=== PATIENT | female | born 1985 | race Caucasian/White ===

== ENCOUNTER 2017-02-04 18:00 | Observation (INO) | payer OTHER | END 2017-02-04 20:05 | disposition home or self-care (01) | LOC: FLD 18:00 | PROVIDERS: ADMIT Obstetrics & Gynecology; ATTEND Obstetrics & Gynecology | DX: Z03.79 Encounter for other suspected maternal and fetal conditions ruled out (principal) | CPT/HCPCS: G0378 ==

== ENCOUNTER 2017-02-23 04:15 | Inpatient (IN) | payer OTHER ==
[2017-02-23] MEDS ORDERED: LR 1,000 ML IV PRN (04:41)
[2017-02-23] MEDS ORDERED: OLIVE OIL 118 ML BTL MISC PRN (04:41)
[2017-02-23] MEDS ORDERED: EPSOM SALT 454 GM TP PRN (04:41)
[2017-02-23] MEDS ORDERED: TERBUTALINE SULFATE 1 MG/ML VIAL IV PRN (04:41)
[2017-02-23] MEDS ORDERED: OXYTOCIN/RINGERS LACTATE 1,000 ML IV PRN (04:41)
[2017-02-23] MEDS ORDERED: LR 500 ML IV PRN (04:48)
[2017-02-23] MEDS ORDERED: OLIVE OIL 118 ML BTL ONE (04:51)
[2017-02-23] MEDS ORDERED: LIDOCAINE 1% 300 MG/30 ML SDV ONE (04:51)
[2017-02-23] MEDS ORDERED: AMMONIA AROMATIC 1 EACH AMP IH ONE (04:52)
[2017-02-23] MEDS ORDERED: OXYTOCIN 10 UNIT/ML VIAL ONE (04:52)
[2017-02-23] MEDS ORDERED: MISOPROSTOL 200 MCG TAB ONE (04:52)
[2017-02-23] MEDS ORDERED: OXYTOCIN/RINGERS LACTATE 500 ML IV SCH (05:00)
--- NOTE | 2017-02-23 05:17 | PDGENHP ---
History and Physical History and Physical: Labor and Delivery History and Physical Exam DATE OF ADMISSION: 02/23/2017 HISTORY OF PRESENT ILLNESS: Helga is a 32-year-old G1 WF @ 40.3 weeks gestation based on EDC of 02/20/17 (by LMP c/w 9 week scan) who presents for elective IOL. She was seen last evening in clinic where a Andrew bulb was inserted through cervix for ripening and induction of labor. Helga is overall quite healthy and she has had a relatively uncomplicated course. Placenta previa was diagnosed on 12 week scan but subsequently resolved. At 39 weeks, growth US was performed to follow size measuring greater than dates. US showed male infant in cephalic presentation measuring 83%ile. She reports that she thinks her Andrew bulb has come out and has presented earlier than expected this morning for admission. A+ / Antibody Screen Neg / RPR NR / Rubella Immune / HBsAg Neg / HIV Neg / CF, SMA, Fragile X, cfDNA testing, MSAFP, anatomy scan all Neg / Pap, GC WNL, 03-22- / Hr GTT 100 / GBS NEGATIVE. MEDICAL HISTORY: H/o anxiety (no current meds). CURRENT MEDICATIONS: OTC vitamins. SURGICAL HISTORY: None. ALLERGIES: Quinine (N/V). SOCIAL HISTORY: (, Min). Planned . Denies tobacco, ETOH or illicit drug use. FAMILY MEDICAL HISTORY: CVD (mom has early onset heart disease), chronic hypertension, melanoma (mom). OBSTETRICAL/GYNECOLOGIC HISTORY: REVIEW OF SYSTEMS: GENERAL: Denies generalized faintness or fatigue HENT: Denies headache, vision changes, sore throat PULM: Denies cough, shortness of breath CV: Denies palpitations, chest pain GI: Denies nausea, vomiting, diarrhea, constipation : Denies dysuria, vaginal bleeding, vaginal discharge, admits to movement and painful contractions, denies gush of fluid. She felt the Andrew "come down, but not sure if it completely came out." MSK: Denies significant swelling in extremities SKIN: Denies rash, or new lesion NEURO: Denies numbness, weakness, tingling PSYCH: Denies significant mood changes PHYSICAL EXAM: VITALS: VSS GENERAL APPEARANCE: Alert & oriented x 3 HENT: Normocephalic, atraumatic HEART: RRR, no M/R/G LUNGS: CTAB, no wheezes, no rhonchi ABDOMEN: Gravid, non-distended, non-tender, S=D PELVIC EXAM: Cervical exam: RN performed exam, Andrew still in cervix and did not come out with firm tug on tubing. EXTREMITIES: No excessive edema noted in bilateral lower extremities. Assessment: FHR 120, category 1 Tocometry: Contractions (30 seconds) every 2 minutes. ASSESSMENT: 32-year-old G1 female @ 40.3 presents for term elective induction of labor. PLAN: 1. Admit for IOL. 2. Consider Pitocin for augmentation.
[2017-02-23 05:53] LABS: % IMMATURE GRANULYOCYTES 0.3 % (0.0-1.1); ABSOLUTE IMMATURE GRANULOCYTES 0.04 10^3/uL (0.00-0.10); ADD DIFF? NO; ADD MORPH? NO; ADD SCAN? NO; ATYPICAL LYMPHOCYTE FLAG 0 (0-99); FRAGMENT RBC FLAG 0 (0-99); HEMATOCRIT 39.1 % (38.0-47.0); HEMOGLOBIN 13.6 g/dL (12.6-16.3); LEFT SHIFT FLG 0 (0-99); LIPEMIA HEMOLYSIS FLAG 90 (0-99); MEAN CELL HEMOGLOBIN 30.1 pg (27.9-34.1); MEAN CELL HEMOGLOBIN CONCENTR. 34.8 g/dL (32.4-36.7); MEAN CELL VOLUME 86.5 fL (81.5-99.8); MEAN PLATELET VOLUME 10.6 fL (8.7-11.7); PLATELET CLUMPS FLAG 10 (0-99); PLATELET COUNT 234 10^3/uL (150-400); RED BLOOD CELL COUNT 4.52 10^6/uL (4.18-5.33); RED CELL DISTRIBUTION WIDTH 12.7 % (11.5-15.2)
--- NOTE | 2017-02-23 10:26 | GHP ---
[f rep st] HISTORY AND PHYSICAL DATE OF ADMISSION: 02/23/2017 ADMITTING DIAGNOSIS: Intrauterine at 40-3/7 weeks' gestation for elective induction of lab or. HISTORY OF PRESENT ILLNESS: The patient is a 32-year-old, 1, para 0, with a last menstrual p eriod of 05/16/2016, and an EDC of 02/20/2017, confirmed by a first trimester ultrasound. She has sheehan d good care at [facility] since registration at 9 weeks' gestation and has had an uncomplicated course. On her initial viability ultrasound, she was diagnosed with a simple ovarian cyst that measured 5 x 6 x 5 cm that was observed over the course of her and resol ed by 20 weeks. She also had a marginal placenta previa initially on ultrasound, which resolved by 2 0 weeks as well. Other than that, she has had normal ultrasounds, normal labs in this , and has progressed to 40-3/7 weeks. The most recent ultrasound for estimated weight due to concer n for size greater than dates, estimated weight was 83rd percentile. Baby was symmetric. BPT was 83rd percentile, AC was 89th, LISA was normal at 15 and, at that point, the patient opted to proce ed with elective induction of labor after her EDC. PAST OBSTETRICAL HISTORY: The patient has no past obstetrical history. This is her first . PAST GYNECOLOGICAL HISTORY: She has normal menses with menarche at age 15, periods every 26-30 days, lasting 5 days. She regular last menstrual period, and she was trying to conceive. She has a remote history of an abnormal Pap at age 21. Negative colpo. Has had normal Pap since. She u sed oral contraceptive pills for the last 10 years. No other gynecological problems or STDs. PAST MEDICAL HISTORY: She has no significant past medical history. She did have a history of head i njuries by trauma at age 8 and in high school soccer. No residual side affects. PAST SURGICAL HISTORY: None. ALLERGIES: She is allergic to quinine. It gives her violent GI symptoms, nausea and vomiting. MEDICATIONS: Her only medications include vitamins and DHA. LABORATORY DATA: She is A positive, antibody negative, RPR nonreactive, rubella immune, hepatitis ne gative, HIV negative. Cystic fibrosis, SMA, fragile X negative. Pap normal. Gonorrhea and chlamydi a normal. Verifi normal. 1-hour GTT 100. GBS is negative. REVIEW OF SYSTEMS: Currently is significant for mild contractions, and she had bloody show and mucus discharge. Normal movement. No other significance in a 10-point review of systems. SOCIAL HISTORY: She is . She lives with her . 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 She denies tobacco, alcohol, and drug use. FAMILY HISTORY: Her mother had early-onset heart disease. Father has chronic hypertension. Paterna l grandmother had rheumatoid arthritis. Mom has melanoma as does her maternal grandfather. OBJECTIVE: Today she is afebrile. Vital signs are stable. heart tones 140s, reactive. Moder ate variability, category 1. She is patricia irregularly. Cervical exam: Her Andrew catheter was removed without difficulty. She is 3 cm, 80%, -3 station, and baby is cephalic. ASSESSMENT AND PLAN: A 32-year-old, 1, para 0 at 40-3/7 weeks' gestation for elective induct ion of labor. We will continue Pitocin per protocol, gradually increasing to achieve active labor. We will reassess her cervical dilation in a couple of hours and attempt artificial rupture of membran es. The patient will desire an epidural for pain control. status is reassuring. /[id number]/MODL
--- NOTE | 2017-02-23 13:06 | OBPROG ---
Labor Progress Note Assessment/Plan: Assessment: 32 y/o @ 40 3/7 weeks IOL secondary to suspected macrosomia. Plan: Cervical change from the castano and good contraction pattern now on pitocin. Baby remains in a high station now. She wants to get her epidural now and when she is comfortable, I will attempt AROM. 02/23/17 13:06 Subjective/Intrapartum Course: 02/23/17 13:02 Pt is feeling strong regular contractions. She is coping with them well. She has walked and worked hard this am to be active with her contractions. Objective: 02/23/17 05:26 Patient ABO/Rh A POSITIVE 02/23/17 05:26 - SVE Dilation (cm): 3 Effacement (%): 80 Station: -2 Membranes: Intact - Contraction Pattern Assessment Current Contraction Pattern: Regular (Q 2-3) - FHR Assessment Rice FHR (bpm): 140 FHR Pattern Variability: Moderate FHR Category: 1 - AP Antepartum Course: 02/23/17 13:05 Marginal placenta previa now resolved. Strong family hx macrosomia and they all needed c section deliveries. Oxytocin Orders Assessment - Pre-Induction/Augmentation Assessment Gestational Age: 40 week(s) and 3 day(s) ICD10 Worksheet Patient Problems: Problems Problem Status Onset Active labor at term Acute - ICD10 Problem Qualifiers (1) Active labor at term
[2017-02-23] MEDS ORDERED: fentaNYL 2MCG/ML/BUP 0.1% RTU 100 ML BAG EP ONE (13:24)
[2017-02-23] MEDS ORDERED: PHENYLEPHRINE HCL 100 MCG/ML SYR ONE ×2 (13:25→19:34)
[2017-02-23] MEDS ORDERED: BUPIVACAINE 0.25% 30 ML SDV ONE (13:25)
[2017-02-23] MEDS ORDERED: fentaNYL 100 MCG/2 ML INJ ONE ×2 (13:26→19:06)
--- NOTE | 2017-02-23 14:49 | OBPROG ---
Labor Progress Note Assessment/Plan: Assessment: 32 y/o @ 40 3/7 weeks IOL secondary to suspected macrosomia. Plan: Cervical change from the castano and good contraction pattern now on pitocin. Baby remains in a high station now. She wants to get her epidural now and when she is comfortable, I will attempt AROM. 02/23/17 13:06 02/23/17 14:48 Good cervical progression. Arom for blood tinged fluid and IUPC placed to optimize pitocin dosing. Continue IOL. status reassuring. Subjective/Intrapartum Course: 02/23/17 13:02 Pt is feeling strong regular contractions. She is coping with them well. She has walked and worked hard this am to be active with her contractions. 02/23/17 14:47 Pt is now comfortable with her epidural. Objective: 02/23/17 05:26 Patient ABO/Rh A POSITIVE 02/23/17 05:26 - SVE Dilation (cm): 5 Effacement (%): 80 Station: -2 Membranes: AROM, Intact Amniotic Fluid Color: Bloody (blood tinged, along with cervical bloody show) - Contraction Pattern Assessment Current Contraction Pattern: Regular (Q 2-3) - FHR Assessment Rice FHR (bpm): 120 FHR Pattern Variability: Moderate FHR Category: 1 (baby had an episode of category 2 transient with maternal hypotension and AROM, now reassuring) - Procedures Non-surgical Procedures: Amniotomy - AP Antepartum Course: 02/23/17 13:05 Marginal placenta previa now resolved. Strong family hx macrosomia and they all needed c section deliveries. Oxytocin Orders Assessment - Pre-Induction/Augmentation Assessment Gestational Age: 40 week(s) and 3 day(s) ICD10 Worksheet Patient Problems: Problems Problem Status Onset Active labor at term Acute - ICD10 Problem Qualifiers (1) Active labor at term
--- NOTE | 2017-02-23 15:15 | PREANESOB ---
Obstetric Pre-Anesthesia Info - General Info Proposed Procedure: Labor and delivery with pitocin. : 1 Para: 0 GERSON: 02/20/17 Gestational Age: 40 week(s) and 3 day(s) - Info Status: Postmature Monitors: External FHR Baseline (bpm): 140 FHR Pattern: Reassuring - Labor Status Cervical Dilation per last OB SVE: 4 Station per last OB SVE: -2 Amniotic Fluid Color: Bloody (blood tinged, along with cervical bloody show) Pitocin: In Use Indications for Labor Analgesia: Induction of Labor, Pain Control Labor Epidural: Proposed Anesthesia ROS: Negative. Allergies/Adverse Reactions: Allergy/AdvReac Type Severity Reaction Status Date / Time quinine Allergy Verified 02/23/17 06:56 Home Medications: Medication Instructions Recorded 1 tab PO DAILY 02/23/17 Visit Medications: Generic Name Dose Route Start Last Admin Trade Name Freq PRN Reason Stop Dose Admin Lactated Ringer's 1,000 mls @ 0 mls/hr 02/23/17 04:41 Lr IV 08/22/17 04:40 PRN PRN SEE PROTOCOL CONDITIONS Protocol Per Protocol Oxytocin/Lactated Ringer's 1,000 mls @ 150 mls/hr 02/23/17 04:41 Pitocin 20 Units/Lr (Premix) IV PRN PRN Post- bleeding Lactated Ringer's 500 mls @ 500 mls/hr 02/23/17 04:48 Lr IV PRN PRN Maternal Hypotension Oxytocin/Lactated Ringer's 500 mls @ 0 mls/hr 02/23/17 05:00 02/23/17 05:48 Pitocin 30 Units/Lr (Premix) IV 08/22/17 04:59 500 mls CONT THEA Administration Protocol Per Protocol Ibuprofen 600 mg 02/23/17 04:41 Motrin PO 08/22/17 04:40 Q6HRS PRN post , inflammation Magnesium Sulfate 454 gm 02/23/17 04:41 Epsom Salt TP 08/22/17 04:40 Q1H PRN perineal discomfort Cushing Oil 118 ml 02/23/17 04:41 Sweet Oil MISC 08/22/17 04:40 ONCE PRN perineal massage Terbutaline Sulfate 0.25 mg 02/23/17 04:41 Brethine IV 04/23/18 04:40 ONCE PRN Tachysystole Discontinued Medications Generic Name Dose Route Start Last Admin Trade Name Curly PRN Reason Stop Dose Admin Ammonia (Aromatic Spirit) Confirm 02/23/17 04:52 Ammonia Aromatic Administered 02/23/17 04:53 Dose 1 each IH .STK-MED ONE Bupivacaine HCl Confirm 02/23/17 13:25 Sensorcaine 0.25% Sdv Administered 02/23/17 13:26 Dose 30 ml .ROUTE .STK-MED ONE Fentanyl Confirm 02/23/17 13:26 Sublimaze Administered 02/23/17 13:27 Dose 100 mcg .ROUTE .STK-MED ONE Fentanyl/Bupivacaine HCl Confirm 02/23/17 13:24 Fentanyl/Bupivacaine/Ns 2 Mcg/Ml 0.1% (Premix Administered 02/23/17 13:25 Dose 100 ml EP .STK-MED ONE Lidocaine HCl Confirm 02/23/17 04:51 Lidocaine Hcl 1% Administered 02/23/17 04:52 Dose 300 mg .ROUTE .STK-MED ONE Misoprostol Confirm 02/23/17 04:52 Cytotec Administered 02/23/17 04:53 Dose 1,000 mcg .ROUTE .STK-MED ONE Cushing Oil Confirm 02/23/17 04:51 Sweet Oil Administered 02/23/17 04:52 Dose 118 ml .ROUTE .STK-MED ONE Oxytocin Confirm 02/23/17 04:52 Pitocin Administered 02/23/17 04:53 Dose 30 unit .ROUTE .STK-MED ONE Phenylephrine HCl Confirm 02/23/17 13:25 Neosynephrine Administered 02/23/17 13:26 Dose 1,000 mcg .ROUTE .STK-MED ONE - Anesthesia History Response to Local Anesthetics: Normal Anesthesia & Operative History: No Prior Problems Family Anesthesia History: Negative - Social History Substance Use/Abuse: Denies - Vital Signs Blood Pressure: 123/79 Heart Rate: 77 Respiratory Rate: 16 Height/Weight (Nursing): Height 170.18 cm Weight 99.79 kg - Focused Exam Neck exam: FROM Mallampati Score: Class 1 Mouth exam: normal dental/mouth exam Pulmonary: no respiratory distress Cardiovascular: regular rate and rhythym Labs: 02/23/17 05:26 Patient ABO/Rh A POSITIVE 02/23/17 05:26 - Plan Anesthetic Plan: YAHAIRA Consent Signed and on Chart: Yes Patient/Guardian Understands and Agrees to Plan: Yes Urgent/Emergent Case: Maribel auguste completed preop but documented later for safe timely pt care (ASA 2.)
--- NOTE | 2017-02-23 15:16 | POSTANESTH ---
Post Anesthetic Evaluation Cardiovascular Status: Normal, Stable (BP stable after phenylephrine.) Respiratory Status: Normal, Stable, Similar to Pre-op Cond. Level of Consciousness/Mental Status: Can Participate in Eval, Alert and Oriented Pain Control: Adequate, Prn Tx Ordered Nausea/Vomiting Control: Adequate, Prn Tx Ordered Complications Possibly Related to Anesthesia: None Noted
[2017-02-23] MEDS ORDERED: ONDANSETRON 4 MG/2 ML VIAL IVP PRN ×2 (15:17→20:52)
[2017-02-23] MEDS ORDERED: PHENYLEPHRINE HCL 100 MCG/ML SYR IVP PRN (15:17)
[2017-02-23] MEDS ORDERED: fentaNYL 2MCG/ML/BUP 0.1% RTU 100 ML EP SCH (15:30)
[2017-02-23] MEDS ORDERED: LR 500 ML IV SCH (15:30)
[2017-02-23] MEDS ORDERED: LIDO/EPI 2% **for epidural** 20 ML SDV ONE (19:06)
[2017-02-23] MEDS ORDERED: ceFAZolin 2 GM in D5W 100 ML IV ONE (19:15)
[2017-02-23] MEDS ORDERED: DEXAMETHASONE 4 MG/ML VIAL ONE (19:34)
[2017-02-23] MEDS ORDERED: OXYTOCIN 100 UNITS/10 ML VIAL ONE (19:34)
[2017-02-23] MEDS ORDERED: ONDANSETRON 4 MG/2 ML VIAL ONE (19:34)
[2017-02-23] MEDS ORDERED: morphINE PF 5 MG/10 ML INJ ONE (19:34)
[2017-02-23] MEDS ORDERED: PROMETHAZINE HCL 25 MG/ML INJ IVP PRN (20:34)
[2017-02-23] MEDS ORDERED: ACETAMINOPHEN 325 MG TAB PO PRN (20:34)
[2017-02-23] MEDS ORDERED: SIMETHICONE 80 MG TAB CHEW PO PRN (20:34)
[2017-02-23] MEDS ORDERED: LACTULOSE 20 GM/30 ML UDCUP PO PRN (20:36)
[2017-02-23] MEDS ORDERED: MAGNESIUM HYDROXIDE 30 ML UDCUP PO PRN (20:36)
[2017-02-23] MEDS ORDERED: BISACODYL 10 MG SUPP PR PRN (20:36)
[2017-02-23] MEDS ORDERED: POLYETHYLENE GLYCOL 3350 17 GM PKT PO PRN (20:36)
--- NOTE | 2017-02-23 20:41 | OBDEL ---
Info Type: Primary Presentation at Delivery: Vertex L&D Analgesia/Anesthesia Type: Epidural GBS+: No Intrapartum Medications: Generic Name Dose Route Start Last Admin Trade Name Freq PRN Reason Stop Dose Admin Oxytocin/Lactated Ringer's 500 mls @ 0 mls/hr 02/23/17 05:00 02/23/17 05:48 Pitocin 30 Units/Lr (Premix) IV 08/22/17 04:59 500 mls CONT THEA Administration Protocol Per Protocol Discontinued Medications Generic Name Dose Route Start Last Admin Trade Name Freq PRN Reason Stop Dose Admin Cefazolin Sodium 2 gm/ 100 mls @ 200 mls/hr 02/23/17 19:15 02/23/17 19:16 Dextrose IV 02/23/17 19:44 100 mls ONCE ONE Administration - Care Provider Skate Maker/PRODUCT SAFETY HEAD: Delia Carrero - Hospital Course Intrapartum: 02/23/17 13:02 Pt is feeling strong regular contractions. She is coping with them well. She has walked and worked hard this am to be active with her contractions. 02/23/17 14:47 Pt is now comfortable with her epidural. Indications for Delivery: Elective (IOL secondary to suspected macrosomia) Vaginal Delivery - Labor and Delivery Onset of Contractions Date: 02/22/17 Onset of Contractions Time: 21:00 Amniotic Fluid Color: Bloody (blood tinged, along with cervical bloody show) Non-surgical Procedures: Amniotomy Operative Report - Delivery Pre-op Diagnoses: IUP @40 3/7 weeks, IOL secondary to macrosomia, arrest of dilation Post-op Diagnoses: same History of Prior Section: No Nulliparous Prior to Delivery: No Indications for Prior Section: Arrest of Dilation Indications for Current Section: Arrest of Dilation Procedure: Unscheduled Surgeon: Latasha Nguyen Site Medical Director: Yuliana Cleveland Anesthesiologist: Gamal Hood Complications: None Findings: normal uterus, tubes and ovaries IV Fluid (ml): 2,500 EBL: 800 Aguilar Data Rice Delivery Date: 02/23/17 Delivery Time: 19:45 GERSON: 02/20/17 Gestational Age: 40 week(s) and 3 day(s) Sex of : Male Score (1 Min): 8 Score (5 Min): 9 ICD10 Worksheet Patient Problems: Problems Problem Status Onset Active labor at term Acute Delivery by section of full-term infant Acute - ICD10 Problem Qualifiers (1) Active labor at term (2) Delivery by section of full-term infant
[2017-02-23] MEDS ORDERED: NALOXONE HCL 0.4 MG/ML INJ IVP PRN (20:52)
--- NOTE | 2017-02-23 20:56 | POSTANESTH ---
Post Anesthetic Evaluation Cardiovascular Status: Normal, Stable Respiratory Status: Normal, Stable Level of Consciousness/Mental Status: Can Participate in Eval Pain Control: Adequate, Prn Tx Ordered Nausea/Vomiting Control: Adequate, Prn Tx Ordered Complications Possibly Related to Anesthesia: None Noted (Epidural dosed for C Section, to OR, BP treated, comfortable for surgery, to PACU, no pain or nausea. )
[2017-02-23] MEDS ORDERED: SCOPOLAMINE HYDROBROMIDE 1 MG/3 DAYS PATCH TD ONE (21:01)
[2017-02-23] MEDS ORDERED: KETOROLAC 30 MG/1 ML SDV ONE (21:32)
[2017-02-23] MEDS: KETOROLAC 30 MG/1 ML SDV IVP PRN (21:33)
[2017-02-24] MEDS: SENNOSIDES/DOCUSATE SODIUM TAB PO SCH ×3 (03:08→22:40)
--- NOTE | 2017-02-24 05:30 | GOP ---
[f rep st] OPERATIVE REPORT DATE OF OPERATION: 02/23/2017 SURGEON: Latasha Nguyen MD HEATING AND VENTILATING DRAFTER: Yuliana Cleveland, certified nurse registered nurse first assistant. ANESTHESIA: Epidural anesthesia. ANESTHESIOLOGIST: Gamal Hood MD. PREOPERATIVE DIAGNOSIS: Intrauterine at 40 and 3/7 weeks gestation with elective induction of labor secondary to presumed macrosomia with arrest of dilation. POSTOPERATIVE DIAGNOSIS: Intrauterine at 40 and 3/7 weeks gestation with elective inductio n of labor secondary to presumed macrosomia with arrest of dilation. PROCEDURE PERFORMED: Primary low transverse section. FINDINGS: Viable male, Apgars of 8 and 9. Weight of 8 pounds 6 ounces. ESTIMATED BLOOD LOSS: For the procedure was 800 cc. INDICATIONS: The patient is a 32-year-old, 1, para 0, with a last menstrual period of 2016, and an EDC of 02/20/2017, confirmed by first trimester ultrasound. She was admitted early the morning of the for induction of labor. The patient had a Andrew catheter placed the evening befo re at the office, and she presented with strong labor contractions every 4-5 minutes at 4:00 am. Upo n initial evaluation, the patient had been admitted, started on Pitocin. Andrew catheter was removed and the cervix was 3 cm, 80%, very high presentation -3. The baby was cephalic. The patient was con tinued on Pitocin, received an epidural, had artificial rupture of membranes for clear fluid and prog ressed to 5 cm, 80%, and still -2 station. An IUPC was placed, and after over 4 and a half hours of documented adequate labor contractions, the patient's cervix was rechecked and she was unchanged, sti ll 5 cm and -2 station. We discussed the likelihood of a successful vaginal delivery with a very slo w progress, and the patient was in agreement to proceed with operative delivery with section . The patient was consented. She understood the risks and benefits. The risks including bleeding, infection, damage to internal organs, uterus, tubes, ovaries, bowel, bladder, nerves, blood vessels, ureters, risk of injury, risk of hemorrhage requiring blood transfusion, hysterectomy, or . She understood these risks and benefits, agreed to proceed. DESCRIPTION OF PROCEDURE: The patient was taken to the operating room where her epidural was dosed a nd found to be adequate. She was prepped and draped in dorsal supine position with a leftward tilt, and a Andrew catheter had previously been placed in her bladder. After adequate anesthesia was assure d, a transverse skin incision was made with a scalpel, and the incision was carried down to the under lying layer of fascia with a knife. Fascia was incised in the midline. Fascial incision was extende d laterally with the Garcia scissors. Superior aspect of fascial incision was grasped with the Zion clamps, elevated, and rectus muscles were dissected off sharply. Inferior aspect of the fascial inci russell was grasped with the Zion clamps, elevated, and the rectus muscles were dissected off sharply. Rectus muscles were in the midline. Peritoneum was entered bluntly. Peritoneal incision was extended superiorly and inferiorly with good visualization of the bladder. Bladder blade was in serted. The vesicouterine peritoneum was grasped with the pickups and entered sharp with Metzenbaum scissors. Incision was extended laterally, and bladder flap was created digitally. The uterus was i ncised with a knife. There was clear amniotic fluid upon entry to the uterine cavity. The incision was extended laterally with bandage scissors. The was in a transverse presentation, high stat ion, and the vacuum was used with 1 pull to deliver the baby atraumatically. Cord was clamped and cu t. The was handed off to the waiting nurse practitioners. Cord blood collection was performed. The placenta was removed manually. The uterus was cleared of all clots and debris and e xteriorized. The uterine incision was repaired with 0 Vicryl in a running locked fashion. Second im bricating layer of suture was performed with 0 Vicryl and good hemostasis was assured. The uterus wa s returned to the abdomen. Gutters were cleared of all clots and debris. Reinspection of the uterin e incision again assured hemostasis. The rectus muscles were approximated with 2-0 Vicryl in inverte d mattress fashion. The fascia was closed with #1 Vicryl in a running fashion. Subcutaneous layer w as closed with 2-0 Vicryl, and skin was closed with 4-0 Monocryl. The patient tolerated the procedur e well. Sponge, lap, needle, and instrument counts were correct x2. The patient went to the recover y room in good condition. FLUIDS REPLACED: IV fluids were 2500 cc. URINE OUTPUT: 600 cc. /[id number]/MODL
[2017-02-24] MEDS: KETOROLAC 30 MG/1 ML SDV IVP PRN ×3 (05:48→19:15)
--- NOTE | 2017-02-24 12:20 | OBPP ---
Progress Note Assessment/Plan: Assessment: [id number] s/p primary c/s POD#1 anemia Plan: start PO iron routine post op care ambulate castano d/c today plan d/c home 2-3 days post op 02/24/17 12:18 Subjective/ Course: 02/24/17 12:19 Pt doing well, denies any pain. She still has castano in place. She reports feeling happy with decision for c/s. without difficulty Objective: 02/24/17 06:05 Patient ABO/Rh A POSITIVE 02/23/17 05:26 Temp Pulse Resp BP Pulse Ox 37.5 C 72 16 92/58 L 94 02/24/17 09:08 02/24/17 09:08 02/24/17 09:08 02/24/17 09:08 02/24/17 09:08 Uterine Position/Fundal Height: At Umbilicus, Midline Uterine Tone: Firm Physical Exam - Physical Exam EENT: normal ENT inspection Neck: non-tender, supple Respiratory: chest non-tender, lungs clear, normal breath sounds Cardiac/Chest: regular rate, rhythm, edema Abdomen: non-tender, soft (dressing: C/D/I) Extremities: non-tender Skin: normal color, warm/dry Neuro/Psych: no motor/sensory deficits, alert, normal mood/affect, oriented x 3
[2017-02-24] MEDS: IBUPROFEN 600 MG TAB PO PRN (19:23)
[2017-02-24] MEDS ORDERED: PATCH REMOVAL 1 EA PATCH TD ONE (21:01)
[2017-02-24] MEDS: HYDROCODONE/APAP 5/325 TAB PO PRN ×2 (22:40→23:54)
[2017-02-25] MEDS: IBUPROFEN 600 MG TAB PO PRN ×4 (01:16→20:11)
[2017-02-25] MEDS: HYDROCODONE/APAP 5/325 TAB PO PRN ×5 (04:38→21:45)
[2017-02-25] MEDS: SENNOSIDES/DOCUSATE SODIUM TAB PO SCH ×2 (07:45→20:10)
--- NOTE | 2017-02-25 13:52 | OBPP ---
Progress Note Assessment/Plan: Assessment: pod# 2 s/p PLTCS for arrest of dilation and descent anemia breast feeding Plan: routine post care iron 02/25/17 13:49 Subjective/ Course: 02/24/17 12:19 Pt doing well, denies any pain. She still has castano in place. She reports feeling happy with decision for c/s. without difficulty 02/25/17 13:50 patient is doing well overall. was hoping to avoid narcotics but had increased pain so took two. making her feel foggy and funny and doesnt like it. discussed pain management strategies. not passing gas yet. ambulating. voiding without difficulty. normal lochia. tolerating diet. denies headache and changes in vision. breast feeing is going well - baby needs to get tongue tie clipped. Objective: 02/24/17 06:05 Patient ABO/Rh A POSITIVE 02/23/17 05:26 Temp Pulse Resp BP Pulse Ox 36.6 C 80 16 98/56 L 95 02/25/17 01:03 02/25/17 01:03 02/25/17 01:03 02/25/17 01:03 02/25/17 01:03 Uterine Position/Fundal Height: Umbilicus -2 Uterine Tone: Firm Physical Exam - Physical Exam Neck: non-tender, full range of motion, supple Respiratory: chest non-tender, lungs clear, normal breath sounds Cardiac/Chest: normal peripheral pulses, regular rate, rhythm Abdomen: normal bowel sounds, non-tender Extremities: normal range of motion, non-tender, normal inspection, normal capillary refill Skin: normal color, warm/dry, other (incision clean dry and intact) Neuro/Psych: no motor/sensory deficits, alert, normal mood/affect, oriented x 3
[2017-02-25] MEDS: IRON POLYSAC/IRON HEME 28 MG TAB PO SCH (20:10)
[2017-02-25] MEDS: DOCUSATE SODIUM 100 MG CAP PO PRN (20:10)
[2017-02-26] MEDS: HYDROCODONE/APAP 5/325 TAB PO PRN ×5 (01:58→20:28)
[2017-02-26] MEDS: IBUPROFEN 600 MG TAB PO PRN ×4 (01:58→20:28)
[2017-02-26] MEDS: SENNOSIDES/DOCUSATE SODIUM TAB PO SCH ×2 (08:09→20:28)
[2017-02-26] MEDS: IRON POLYSAC/IRON HEME 28 MG TAB PO SCH (08:09)
--- NOTE | 2017-02-26 08:38 | OBPP ---
Progress Note Assessment/Plan: Assessment: Post Day 1 s/p low transverse section Stable afebrile Anemia Plan: Continue post care Iron Discharge Home tomorrow 02/26/17 08:31 02/26/17 08:38 02/26/17 08:41 Subjective/ Course: 02/24/17 12:19 Pt doing well, denies any pain. She still has castano in place. She reports feeling happy with decision for c/s. without difficulty 02/25/17 13:50 patient is doing well overall. was hoping to avoid narcotics but had increased pain so took two. making her feel foggy and funny and doesnt like it. discussed pain management strategies. not passing gas yet. ambulating. voiding without difficulty. normal lochia. tolerating diet. denies headache and changes in vision. breast feeing is going well - baby needs to get tongue tie clipped. 02/26/17 08:41 Patient is doing well 02/26/17 08:44 Patient doing well, slight anemia on iron, ambulating and flatus wanting to see today will discharge home tomorrow Objective: 02/24/17 06:05 Patient ABO/Rh A POSITIVE 02/23/17 05:26 Temp Pulse Resp BP Pulse Ox 36.6 C 68 16 101/66 92 02/26/17 05:45 02/26/17 05:45 02/26/17 05:45 02/26/17 05:45 02/26/17 05:45 Uterine Position/Fundal Height: Umbilicus -2 Uterine Tone: Firm (Incision clean /dry and intact) Physical Exam - Physical Exam Respiratory: chest non-tender, lungs clear, normal breath sounds Cardiac/Chest: regular rate, rhythm, edema (1+) Abdomen: normal bowel sounds Extremities: normal range of motion, non-tender Skin: normal color, warm/dry Neuro/Psych: alert, normal mood/affect, oriented x 3
[2017-02-26] MEDS: DOCUSATE SODIUM 100 MG CAP PO PRN (17:48)
[2017-02-27] MEDS: HYDROCODONE/APAP 5/325 TAB PO PRN ×3 (00:32→12:34)
[2017-02-27] MEDS: IBUPROFEN 600 MG TAB PO PRN ×2 (02:38→10:26)
--- NOTE | 2017-02-27 07:22 | OBPP ---
Progress Note Assessment/Plan: Assessment: Post Day 4 s/p low transverse section Stable afebrile Anemia Plan: Continue post care Iron/colace/ pain medication Discharge Home 02/26/17 08:31 02/26/17 08:38 02/26/17 08:41 02/27/17 07:30 02/27/17 07:30 Subjective/ Course: 02/24/17 12:19 Pt doing well, denies any pain. She still has castano in place. She reports feeling happy with decision for c/s. without difficulty 02/25/17 13:50 patient is doing well overall. was hoping to avoid narcotics but had increased pain so took two. making her feel foggy and funny and doesnt like it. discussed pain management strategies. not passing gas yet. ambulating. voiding without difficulty. normal lochia. tolerating diet. denies headache and changes in vision. breast feeing is going well - baby needs to get tongue tie clipped. 02/26/17 08:41 Patient is doing well 02/26/17 08:44 Patient doing well, slight anemia on iron, ambulating and flatus wanting to see today will discharge home tomorrow 02/27/17 07:21 Doing well no complaints today okay for discharge. Ambulating and tolerating diet Objective: 02/24/17 06:05 Patient ABO/Rh A POSITIVE 02/23/17 05:26 Temp Pulse Resp BP Pulse Ox 37.1 C 92 18 123/81 H 96 02/26/17 20:30 02/26/17 20:30 02/26/17 20:30 02/26/17 20:30 02/26/17 20:30 Uterine Position/Fundal Height: Umbilicus -2 Uterine Tone: Firm (Incision clean dry and intact) Physical Exam - Physical Exam Neck: non-tender, full range of motion Respiratory: chest non-tender, lungs clear, normal breath sounds Cardiac/Chest: normal peripheral pulses, regular rate, rhythm Abdomen: normal bowel sounds Extremities: normal range of motion, non-tender Skin: normal color, warm/dry Neuro/Psych: no motor/sensory deficits, alert, normal mood/affect, oriented x 3
--- NOTE | 2017-02-27 07:35 | OBGCSDC ---
General Delivery Information - General Info : 1 Para: 1 Abortions: 0 Type: Primary L&D Analgesia/Anesthesia Type: Epidural Admission Date: 02/23/17 Labs: Patient ABO/Rh A POSITIVE 02/23/17 05:26 Hct 33.6 % (38.0-47.0) L 02/24/17 06:05 - Hospital Course Antepartum: 02/23/17 13:05 Marginal placenta previa now resolved. Strong family hx macrosomia and they all needed c section deliveries. Intrapartum: 02/23/17 13:02 Pt is feeling strong regular contractions. She is coping with them well. She has walked and worked hard this am to be active with her contractions. 02/23/17 14:47 Pt is now comfortable with her epidural. : 02/24/17 12:19 Pt doing well, denies any pain. She still has castano in place. She reports feeling happy with decision for c/s. without difficulty 02/25/17 13:50 patient is doing well overall. was hoping to avoid narcotics but had increased pain so took two. making her feel foggy and funny and doesnt like it. discussed pain management strategies. not passing gas yet. ambulating. voiding without difficulty. normal lochia. tolerating diet. denies headache and changes in vision. breast feeing is going well - baby needs to get tongue tie clipped. 02/26/17 08:41 Patient is doing well 02/26/17 08:44 Patient doing well, slight anemia on iron, ambulating and flatus wanting to see today will discharge home tomorrow 02/27/17 07:21 Doing well no complaints today okay for discharge. Ambulating and tolerating diet Vaginal - Diagnosis Amniotic Fluid Color: Bloody (blood tinged, along with cervical bloody show) - Procedures Non-surgical Procedures: Amniotomy - Delivery Providers Surgeon: Latasha Nguyen Environmental [employer] Professor: Yuliana Cleveland Anesthesiologist: Gamal Hood - Delivery Indications for Current Section: Arrest of Dilation Non-surgical Procedures: Amniotomy Surgical Procedures: Unscheduled Intra-op Complications: None EBL: 800 Data Rice Delivery Date: 02/23/17 Delivery Time: 19:45 GERSON: 02/20/17 Gestational Age: 41 week(s) and 0 day(s) Sex of : Male [place] Weight (gm): 3786 g Score (1 Min): 8 Score (5 Min): 9 Discharge Information - Discharge Information Prescriptions: Hydrocodone/APAP 5/325 [[place] 5/325 (*)] 1 - 2 tab PO Q4HRS PRN #30 tab PRN Reason: Pain, Moderate Ibuprofen [Motrin (*)] 600 mg PO Q6HRS PRN #30 tab PRN Reason: post , inflammation Docusate Sodium [Colace 100 MG (*)] 100 mg PO BID PRN #40 cap PRN Reason: Constipation Condition: Good Instruction/Follow Up: Two Weeks (Incision check then in 2 weeks after that for wellness check)
--- NOTE | 2017-02-27 07:49 | OBPP ---
Progress Note Assessment/Plan: Assessment: Post Day 4 s/p low transverse section Stable afebrile Anemia Plan: Continue post care Iron Discharge Home today 02/26/17 08:31 02/26/17 08:38 02/26/17 08:41 02/27/17 07:18 Doing well today Ready for discharge. Ambulating, flatus and tolerating diet 02/27/17 07:20 Subjective/ Course: 02/24/17 12:19 Pt doing well, denies any pain. She still has castano in place. She reports feeling happy with decision for c/s. without difficulty 02/25/17 13:50 patient is doing well overall. was hoping to avoid narcotics but had increased pain so took two. making her feel foggy and funny and doesnt like it. discussed pain management strategies. not passing gas yet. ambulating. voiding without difficulty. normal lochia. tolerating diet. denies headache and changes in vision. breast feeing is going well - baby needs to get tongue tie clipped. 02/26/17 08:41 Patient is doing well 02/26/17 08:44 Patient doing well, slight anemia on iron, ambulating and flatus wanting to see today will discharge home tomorrow Objective: 02/24/17 06:05 Patient ABO/Rh A POSITIVE 02/23/17 05:26 Temp Pulse Resp BP Pulse Ox 37.1 C 92 18 123/81 H 96 02/26/17 20:30 02/26/17 20:30 02/26/17 20:30 02/26/17 20:30 02/26/17 20:30 Uterine Position/Fundal Height: At Umbilicus Physical Exam - Physical Exam EENT: PERRL/EOMI Respiratory: chest non-tender, lungs clear, normal breath sounds Cardiac/Chest: normal peripheral pulses, regular rate, rhythm Abdomen: normal bowel sounds Extremities: normal range of motion Back: Normal inspection Skin: normal color Neuro/Psych: no motor/sensory deficits, alert, normal mood/affect, oriented x 3
[2017-02-27 08:11] VITALS: BP 107/71; PULSE 76; RESP 19; TEMP 98.2; O2SAT 94
[2017-02-27] MEDS: SENNOSIDES/DOCUSATE SODIUM TAB PO SCH (10:27)
[2017-02-27] MEDS: IRON POLYSAC/IRON HEME 28 MG TAB PO SCH (10:27)
[2017-02-27] MEDS: DOCUSATE SODIUM 100 MG CAP PO PRN (10:27)
== END 2017-02-27 12:45 | disposition home or self-care (01) | DRG 766 ==
LOC: FLD 04:15 → FOB 22:00
PROVIDERS: ADMIT Obstetrics & Gynecology Gynecology; ATTEND Obstetrics & Gynecology
PROC: 10D00Z1 Extraction of Products of Conception, Low, Open Approach (ICD-10-PCS; principal; 2017-02-23)
PROC: 10H073Z Insertion of Monitoring Electrode into Products of Conception, Via Natural or Artificial Opening (ICD-10-PCS; principal; 2017-02-23)
PROC: 3E033VJ Introduction of Other Hormone into Peripheral Vein, Percutaneous Approach (ICD-10-PCS; principal; 2017-02-23)
DX: O36.63X0 Maternal care for excessive fetal growth, third trimester, not applicable or unspecified (principal); O62.0 Primary inadequate contractions; O48.0 Post-term pregnancy; O90.81 Anemia of the puerperium; O76 Abnormality in fetal heart rate and rhythm complicating labor and delivery; Z3A.40 40 weeks gestation of pregnancy; Z37.0 Single live birth
CPT/HCPCS: J0690; J1100; J1200; J1885; J2274; J2370; J2405; J2590; J3010